=== PATIENT | male | born 1975 | race Caucasian/White ===

== ENCOUNTER 2018-01-24 04:00 | Inpatient (IN) | payer MEDICARE, MEDICAID ==
[2018-01-24] MEDS: IPRATROPIUM (NEB) 0.5 MG/2.5 ML AMP INH (04:24)
[2018-01-24] MEDS: LEVALBUTEROL (NEB) 1.25 MG/0.5 ML AMP INH (04:24)
[2018-01-24] MEDS: SOD CHLORIDE 0.9% 1,000 ML IV ×3 (04:56→16:48)
[2018-01-24 04:59] LABS: ADD MAN DIFF? NO
[2018-01-24 05:01] LABS: ABNORMAL IP MESSAGE 1; BASOPHIL # 0.1 10^3/ul (0.0-0.1); BASOPHILS % 1.2 % (0.0-2.0); EOSINOPHILS # 0.4 10^3/ul (0.0-0.5); EOSINOPHILS % 5.1 % (0.0-7.0); HEMATOCRIT 41.1 % (42.0-52.0); LYMPHOCYTES # 5.5 10^3/ul (0.8-2.9); MEAN CORPUSCULAR HEMOGLOBIN 28.7 pg (29.0-33.0); MEAN CORPUSCULAR HGB CONC 34.1 g/dl (32.0-37.0); MEAN CORPUSCULAR VOLUME 84.4 fl (82.0-101.0); MEAN PLATELET VOLUME 9.1 fl (7.4-10.4); MONOCYTE # 0.3 10^3/ul (0.3-0.9); MONOCYTES % 4.5 % (0.0-11.0); NEUTROPHIL # 1.3 10^3/ul (1.6-7.5); NEUTROPHILS % 16.9 % (39.0-77.0); PLATELET COUNT 223 10^3/UL (140-415); POSITIVE DIFF @See below; RED BLOOD COUNT 4.87 10^6/ul (4.70-6.10)
[2018-01-24 05:01] LABS: WHITE BLOOD COUNT 7.6 10^3/ul (4.8-10.8)
[2018-01-24 05:28] LABS: INR 0.92; PROTIME 12.4 Sec (11.9-14.9)
[2018-01-24 05:29] LABS: ANION GAP 13 (8-16); BLOOD UREA NITROGEN 12 mg/dl (7-20); CALCIUM 9.9 mg/dl (8.4-10.2); CARBON DIOXIDE 27 mmol/L (21-31); CHLORIDE 103 mmol/L (97-110); CREATININE 0.62 mg/dl (0.61-1.24); GLUCOSE 160 mg/dl (70-220); PARTIAL THROMBOPLASTIN TIME 30.9 Sec (25.0-35.0); POTASSIUM 4.5 mmol/L (3.5-5.1); SODIUM 138 mmol/L (135-144)
[2018-01-24 05:40] LABS: TROPONIN-I < 0.010 ng/ml (0.000-0.120)
[2018-01-24 06:05] LABS: D-DIMER 437.27 ng/ml (<460)
[2018-01-24] MEDS: ASPIRIN 325 MG TAB PO (07:25)
[2018-01-24] MEDS ORDERED: SOD CHLORIDE 0.9% 1,000 ML IV (09:00)
[2018-01-24] MEDS ORDERED: NITROGLYCERIN (SL) 0.4 MG TAB SL (09:00)
[2018-01-24] MEDS: SOD CHLORIDE 0.9% 500 ML IV (09:37)
[2018-01-24] MEDS ORDERED: ACETAMINOPHEN 325 MG TAB PO (10:00)
[2018-01-24] MEDS ORDERED: ONDANSETRON 4 MG INJ IV (10:00)
[2018-01-24] MEDS ORDERED: NACL 0.9% 3 ML SYG IV (10:00)
[2018-01-24 10:17] LABS: ALANINE AMINOTRANSFERASE 31 IU/L (13-69); ALBUMIN 4.3 g/dl (3.3-4.9); ALKALINE PHOSPHATASE 73 IU/L (42-121); ASPARTATE AMINO TRANSFERASE 32 IU/L (15-46); BILIRUBIN,INDIRECT 0.5 mg/dl (0-1.1); BILIRUBIN,TOTAL 0.5 mg/dl (0.2-1.3); TOTAL PROTEIN 6.9 g/dl (6.1-8.1)
[2018-01-24 10:20] LABS: HEMOGLOBIN A1C 7.6 % (0-5.9)
[2018-01-24] MEDS: HYDROCODONE/APAP (5/325) TAB PO (10:30)
[2018-01-24 11:34] LABS: B-TYPE NATRIURETIC PEPTIDE 43 PG/ML (0-125)
[2018-01-24 11:40] LABS: FREE T4 (FREE THYROXINE) 1.01 ng/dl (0.64-1.79)
[2018-01-24 11:50] LABS: CREATINE KINASE 28 IU/L (23-200)
[2018-01-24] MEDS: INSULIN ASPART [NOVOLOG] 3 ML PEN SC ×4 (11:50→16:54)
[2018-01-24 12:03] LABS: CK INDEX 1.9; CK-MB 0.53 ng/ml (0.0-2.4); TROPONIN-I < 0.010 ng/ml (0.000-0.120)
[2018-01-24] MEDS ORDERED: ALBUTEROL 0.083% (NEB) 2.5 MG/3 ML AMP HHN (12:30)
[2018-01-24] MEDS ORDERED: GLUCOSE GEL 15 GRAM TUBE BUCCAL (12:30)
[2018-01-24] MEDS ORDERED: GLUCOSE GEL 15 GRAM TUBE PO ×2 (12:30)
[2018-01-24] MEDS ORDERED: DEXTROSE 50% 50 ML SYRINGE IV ×2 (12:30)
[2018-01-24] MEDS ORDERED: GLUCAGON 1 MG INJ IM (12:30)
[2018-01-24] MEDS: HYDROCODONE/APAP (10/325) TAB PO (13:50)
[2018-01-24] MEDS ORDERED: HYDROCODONE/APAP (10/325) TAB PO (14:00)
[2018-01-24] MEDS: NYSTATIN 30 GM POWDER BTL TOP (16:27)
[2018-01-24 16:32] LABS: CREATINE KINASE 30 IU/L (23-200)
[2018-01-24 16:45] LABS: CK INDEX 1.9; CK-MB 0.58 ng/ml (0.0-2.4); TROPONIN-I < 0.010 ng/ml (0.000-0.120)
[2018-01-24] MEDS: HYDROmorphONE 2 MG TAB PO ×2 (17:37→21:35)
[2018-01-24 19:39] LABS: AMPHETAMINE/METHAMPHETAMINE Negative (NEGATIVE); BARBITURATES Negative (NEGATIVE); BENZODIAZEPINES Negative (NEGATIVE); CANNABINOIDS Negative (NEGATIVE); COCAINE Negative (NEGATIVE)
[2018-01-24 19:42] LABS: OPIATES Positive (NEGATIVE)
[2018-01-24] MEDS: GABAPENTIN 300 MG CAP PO (20:50)
[2018-01-24] MEDS: DIVALPROEX (EC) 500 MG TAB PO (20:50)
[2018-01-24] MEDS: QUETIAPINE 100 MG TAB PO (20:50)
[2018-01-24] MEDS: GEMFIBROZIL 600 MG TAB PO (20:50)
[2018-01-24] MEDS: INSULIN GLARGINE [LANTus] (100 UNITS/ML) SYG SC (20:58)
[2018-01-25] MEDS: HYDROmorphONE 2 MG TAB PO ×4 (01:36→14:58)
[2018-01-25] MEDS: LEVOTHYROXINE 75 MCG TAB PO (06:04)
[2018-01-25 06:14] LABS: ADD MAN DIFF? NO
[2018-01-25 06:43] LABS: BASOPHIL # 0.1 10^3/ul (0.0-0.1); BASOPHILS % 1.1 % (0.0-2.0); EOSINOPHILS # 0.3 10^3/ul (0.0-0.5); HEMATOCRIT 37.8 % (42.0-52.0); HEMOGLOBIN 12.9 g/dl (14.0-18.0); LYMPHOCYTES # 3.9 10^3/ul (0.8-2.9); LYMPHOCYTES % 67.9 % (15.0-51.0); MEAN CORPUSCULAR HEMOGLOBIN 28.5 pg (29.0-33.0); MEAN CORPUSCULAR HGB CONC 34.1 g/dl (32.0-37.0); MEAN CORPUSCULAR VOLUME 83.6 fl (82.0-101.0); MEAN PLATELET VOLUME 9.7 fl (7.4-10.4); MONOCYTE # 0.3 10^3/ul (0.3-0.9); MONOCYTES % 5.4 % (0.0-11.0); NEUTROPHIL # 1.1 10^3/ul (1.6-7.5); NEUTROPHILS % 19.6 % (39.0-77.0); PLATELET COUNT 215 10^3/UL (140-415); RED BLOOD COUNT 4.52 10^6/ul (4.70-6.10)
[2018-01-25 06:43] LABS: WHITE BLOOD COUNT 5.7 10^3/ul (4.8-10.8)
[2018-01-25 06:47] LABS: PHOSPHORUS 4.8 mg/dl (2.5-4.9)
[2018-01-25 06:47] LABS: MAGNESIUM 1.6 mg/dl (1.7-2.5)
[2018-01-25 07:30] LABS: ALANINE AMINOTRANSFERASE 31 IU/L (13-69); ALBUMIN 4.1 g/dl (3.3-4.9); ALBUMIN/GLOBULIN RATIO 1.64; ALKALINE PHOSPHATASE 73 IU/L (42-121); ANION GAP 11 (8-16); ASPARTATE AMINO TRANSFERASE 36 IU/L (15-46); BILIRUBIN,INDIRECT 0.4 mg/dl (0-1.1); BILIRUBIN,TOTAL 0.4 mg/dl (0.2-1.3); BLOOD UREA NITROGEN 12 mg/dl (7-20); CALCIUM 9.4 mg/dl (8.4-10.2); CARBON DIOXIDE 25 mmol/L (21-31); CHLORIDE 107 mmol/L (97-110); GLUCOSE 142 mg/dl (70-220); POTASSIUM 4.2 mmol/L (3.5-5.1); SODIUM 139 mmol/L (135-144); TOTAL PROTEIN 6.6 g/dl (6.1-8.1)
[2018-01-25] MEDS: GABAPENTIN 300 MG CAP PO (08:15)
[2018-01-25] MEDS: GEMFIBROZIL 600 MG TAB PO (08:15)
[2018-01-25] MEDS: ASPIRIN 81 MG TAB PO (08:16)
[2018-01-25] MEDS: CITALOPRAM 20 MG TAB PO (08:16)
[2018-01-25] MEDS: ENOXAPARIN 40 MG/0.4 ML SYG SC (08:38)
[2018-01-25 10:39] LABS: CHOLESTEROL 213 mg/dl (100-200)
[2018-01-25 10:39] LABS: CHOL/HDL RATIO 6.2 RATIO; HDL CHOLESTEROL 34 mg/dl (27-67); LDL CHOLESTEROL,CALCULATED 147 mg/dl; TRIGLYCERIDES 160 mg/dl (0-149)
[2018-01-25] MEDS: MAGNESIUM SULFATE 2 GM/50 ML 50 ML IVPB (10:52)
[2018-01-25] MEDS ORDERED: DEXTROSE 50% 50 ML SYRINGE IV ×2 (11:00)
[2018-01-25] MEDS ORDERED: GLUCAGON 1 MG INJ IM (11:00)
[2018-01-25] MEDS ORDERED: GLUCOSE GEL 15 GRAM TUBE BUCCAL (11:00)
[2018-01-25] MEDS ORDERED: GLUCOSE GEL 15 GRAM TUBE PO ×2 (11:00)
[2018-01-25] MEDS: INSULIN ASPART [NOVOLOG] 3 ML PEN SC ×4 (11:50→17:01)
[2018-01-26] MEDS ORDERED: ACCU-CHEK XX (02:00)
== END 2018-01-25 20:00 | DRG 313 ==
LOC: TEL 07:52 → E/R 04:00 → TEL 05:39
DX: R07.9 Chest pain, unspecified (principal); L03.311 Cellulitis of abdominal wall; J45.909 Unspecified asthma, uncomplicated; I95.9 Hypotension, unspecified; E11.9 Type 2 diabetes mellitus without complications; E78.5 Hyperlipidemia, unspecified; J44.9 Chronic obstructive pulmonary disease, unspecified; E03.9 Hypothyroidism, unspecified; G89.29 Other chronic pain; E66.9 Obesity, unspecified; Z68.36 Body mass index [BMI] 36.0-36.9, adult; F29 Unspecified psychosis not due to a substance or known physiological condition; F31.9 Bipolar disorder, unspecified
CPT/HCPCS: 36415; 71045; 80048; 80053; 80061; 80076; 80307; 82550; 82553; 82962; 83036; 83735; 83880; 84100; 84439; 84443; 84484; 85025; 85378; 85610; 85730; 87081; 93005; 93306; 94644; 99285-25; G0378

== ENCOUNTER 2018-02-06 22:08 | Emergency (ER) | payer MEDICARE, MEDICAID ==
[2018-02-06] MEDS: SOD CHLORIDE 0.9% 1,000 ML IV (22:59)
[2018-02-06] MEDS: KETOROLAC 30 MG INJ IV (22:59)
[2018-02-06 23:09] LABS: ADD MAN DIFF? NO
[2018-02-06 23:10] LABS: BASOPHIL # 0.1 10^3/ul (0.0-0.1); BASOPHILS % 1.4 % (0.0-2.0); EOSINOPHILS # 0.2 10^3/ul (0.0-0.5); EOSINOPHILS % 3.4 % (0.0-7.0); HEMATOCRIT 36.5 % (42.0-52.0); HEMOGLOBIN 12.7 g/dl (14.0-18.0); IMMATURE GRANS #M 0.01 10^3/ul; IMMATURE GRANS % (M) 0.2 %; LYMPHOCYTES # 3.2 10^3/ul (0.8-2.9); MEAN CORPUSCULAR HEMOGLOBIN 28.7 pg (29.0-33.0); MEAN CORPUSCULAR HGB CONC 34.8 g/dl (32.0-37.0); MEAN CORPUSCULAR VOLUME 82.4 fl (82.0-101.0); MEAN PLATELET VOLUME 10.1 fl (7.4-10.4); MONOCYTE # 0.5 10^3/ul (0.3-0.9); MONOCYTES % 9.1 % (0.0-11.0); NEUTROPHIL # 1.1 10^3/ul (1.6-7.5); NEUTROPHILS % 21.9 % (39.0-77.0); PLATELET COUNT 197 10^3/UL (140-415); RED BLOOD COUNT 4.43 10^6/ul (4.70-6.10); RED CELL DISTRIBUTION WIDTH 12.3 % (11.5-14.5)
[2018-02-06 23:14] LABS: INR 0.93; PROTIME 12.6 Sec (11.9-14.9)
[2018-02-06 23:15] LABS: PARTIAL THROMBOPLASTIN TIME 30.9 Sec (25.0-35.0)
[2018-02-06 23:16] LABS: ANION GAP 14 (8-16); BLOOD UREA NITROGEN 6 mg/dl (7-20); CALCIUM 9.6 mg/dl (8.4-10.2); CARBON DIOXIDE 23 mmol/L (21-31); CHLORIDE 106 mmol/L (97-110); CREATININE 0.55 mg/dl (0.61-1.24); GLUCOSE 151 mg/dl (70-220); POTASSIUM 4.1 mmol/L (3.5-5.1); SODIUM 139 mmol/L (135-144)
[2018-02-06 23:27] LABS: TROPONIN-I < 0.010 ng/ml (0.000-0.120)
[2018-02-06 23:50] LABS: VALPROATE 11 ug/ml (50-100)
[2018-02-07 01:28] LABS: TROPONIN-I < 0.010 ng/ml (0.000-0.120)
[2018-02-07] MEDS: OXYCODONE/ACETAMINOPHEN (5/325) TAB PO (02:47)
== END 2018-02-07 04:29 | disposition home or self-care (01) ==
LOC: E/R 02-07 04:29
DX: R07.9 Chest pain, unspecified (principal); D64.9 Anemia, unspecified; J44.9 Chronic obstructive pulmonary disease, unspecified; I10 Essential (primary) hypertension; F17.210 Nicotine dependence, cigarettes, uncomplicated; E03.9 Hypothyroidism, unspecified; E11.9 Type 2 diabetes mellitus without complications; Z79.84 Long term (current) use of oral hypoglycemic drugs
CPT/HCPCS: 36415; 71045; 80048; 80164; 84484; 85025; 85378; 85610; 85730; 93005; 96374; 99285-25

== ENCOUNTER 2018-02-20 23:08 | Emergency (ER) | payer MEDICARE, MEDICAID ==
[2018-02-20 23:28] LABS: ADD MAN DIFF? NO
[2018-02-20 23:33] LABS: WHITE BLOOD COUNT 4.4 10^3/ul (4.8-10.8)
[2018-02-20 23:33] LABS: BASOPHIL # 0.1 10^3/ul (0.0-0.1); BASOPHILS % 1.4 % (0.0-2.0); EOSINOPHILS # 0.2 10^3/ul (0.0-0.5); EOSINOPHILS % 3.6 % (0.0-7.0); HEMATOCRIT 36.7 % (42.0-52.0); HEMOGLOBIN 12.5 g/dl (14.0-18.0); LYMPHOCYTES # 2.8 10^3/ul (0.8-2.9); LYMPHOCYTES % 62.3 % (15.0-51.0); MEAN CORPUSCULAR HEMOGLOBIN 28.3 pg (29.0-33.0); MEAN CORPUSCULAR HGB CONC 34.1 g/dl (32.0-37.0); MEAN PLATELET VOLUME 9.5 fl (7.4-10.4); MONOCYTE # 0.4 10^3/ul (0.3-0.9); MONOCYTES % 9.3 % (0.0-11.0); NEUTROPHILS % 22.9 % (39.0-77.0); PLATELET COUNT 204 10^3/UL (140-415); RED BLOOD COUNT 4.42 10^6/ul (4.70-6.10); RED CELL DISTRIBUTION WIDTH 12.7 % (11.5-14.5)
[2018-02-20] MEDS: ASPIRIN 81 MG TAB PO (23:44)
[2018-02-20 23:50] LABS: ANION GAP 13 (8-16); BLOOD UREA NITROGEN 10 mg/dl (7-20); CALCIUM 9.5 mg/dl (8.4-10.2); CARBON DIOXIDE 24 mmol/L (21-31); CHLORIDE 102 mmol/L (97-110); CREATININE 0.66 mg/dl (0.61-1.24); GLUCOSE 151 mg/dl (70-220); POTASSIUM 4.3 mmol/L (3.5-5.1); SODIUM 135 mmol/L (135-144)
[2018-02-20 23:51] LABS: INR 0.94; PROTIME 12.7 Sec (11.9-14.9)
[2018-02-21 00:02] LABS: B-TYPE NATRIURETIC PEPTIDE 44 PG/ML (0-125); TROPONIN-I < 0.012 ng/ml (0.000-0.120)
[2018-02-21] MEDS: IOHEXOL 100 ML (01:06)
[2018-02-21] MEDS: SOD CHLORIDE 0.9% 100 ML (01:06)
[2018-02-21] MEDS: HYDROmorphONE 0.5 MG/0.5 ML SYG IV (03:00)
== END 2018-02-21 04:49 | disposition home or self-care (01) ==
LOC: E/R 23:08
DX: D64.9 Anemia, unspecified (principal); R07.89 Other chest pain; J44.9 Chronic obstructive pulmonary disease, unspecified; I10 Essential (primary) hypertension; E11.9 Type 2 diabetes mellitus without complications; E66.01 Morbid (severe) obesity due to excess calories; Z79.84 Long term (current) use of oral hypoglycemic drugs; Z68.38 Body mass index [BMI] 38.0-38.9, adult
CPT/HCPCS: 36415; 71045; 71275; 80048; 83880; 84484; 85025; 85610; 93005; 96374; 99285-25

== ENCOUNTER 2018-08-05 10:53 | Day surgery (SDC) | payer OTHER ==
[2018-08-05] MEDS ORDERED: DIAZEPAM 5 MG TAB PO (12:00)
[2018-08-05] MEDS ORDERED: DIPHENHYDRAMINE 50 MG CAP PO (12:00)
[2018-08-05] MEDS ORDERED: IODIXANOL LOCM 100 ML BTL (12:10)
[2018-08-05] MEDS ORDERED: LIDOCAINE 1% (MDV) 20 ML INJ (12:10)
[2018-08-05] MEDS ORDERED: HEPARIN 1000 UNITS/ML 10 ML INJ (12:10)
[2018-08-05] MEDS ORDERED: NITROGLYCERIN (IC) 100 MCG/ML INJ (12:11)
[2018-08-05] MEDS ORDERED: VERAPAMIL 5 MG INJ (12:11)
[2018-08-05] MEDS ORDERED: morphine 2 MG INJ IV (13:30)
[2018-08-05] MEDS ORDERED: ONDANSETRON 4 MG INJ IV (13:30)
[2018-08-05] MEDS ORDERED: AL HYDROX/MG HYDROX/SIMETH 30 ML CUP PO (13:30)
[2018-08-05] MEDS: ACETAMINOPHEN 325 MG TAB PO (15:12)
== END 2018-08-05 20:28 | disposition short-term general hospital (02) ==
LOC: CCL 10:53 → SDS 10:53 → CCL 20:28
DX: I25.10 Atherosclerotic heart disease of native coronary artery without angina pectoris (principal); I10 Essential (primary) hypertension; E11.9 Type 2 diabetes mellitus without complications
CPT/HCPCS: 82962; 93458

== ENCOUNTER 2018-10-26 00:19 | Emergency (ER) | payer MEDICARE, MEDICAID ==
[2018-10-26 00:56] LABS: ADD MAN DIFF? NO
[2018-10-26 01:00] LABS: WHITE BLOOD COUNT 4.2 10^3/ul (4.8-10.8)
[2018-10-26 01:00] LABS: BASOPHIL # 0.1 10^3/ul (0.0-0.1); BASOPHILS % 1.2 % (0.0-2.0); EOSINOPHILS % 0.7 % (0.0-7.0); HEMATOCRIT 36.7 % (42.0-52.0); HEMOGLOBIN 12.6 g/dl (14.0-18.0); LYMPHOCYTES # 1.3 10^3/ul (0.8-2.9); LYMPHOCYTES % 31.7 % (15.0-51.0); MEAN CORPUSCULAR HEMOGLOBIN 27.3 pg (29.0-33.0); MEAN CORPUSCULAR HGB CONC 34.3 g/dl (32.0-37.0); MEAN CORPUSCULAR VOLUME 79.6 fl (82.0-101.0); MEAN PLATELET VOLUME 9.8 fl (7.4-10.4); MONOCYTE # 0.4 10^3/ul (0.3-0.9); MONOCYTES % 8.3 % (0.0-11.0); NEUTROPHIL # 2.5 10^3/ul (1.6-7.5); NEUTROPHILS % 57.9 % (39.0-77.0); PLATELET COUNT 188 10^3/UL (140-415); RED BLOOD COUNT 4.61 10^6/ul (4.70-6.10); RED CELL DISTRIBUTION WIDTH 12.7 % (11.5-14.5)
[2018-10-26 01:15] LABS: ALANINE AMINOTRANSFERASE 30 IU/L (13-69); ALBUMIN 4.2 g/dl (3.3-4.9); ALBUMIN/GLOBULIN RATIO 1.82; ALKALINE PHOSPHATASE 130 IU/L (42-121); ANION GAP 11 (5-13); ASPARTATE AMINO TRANSFERASE 49 IU/L (15-46); BILIRUBIN,INDIRECT 0.4 mg/dl (0-1.1); BILIRUBIN,TOTAL 0.4 mg/dl (0.2-1.3); BLOOD UREA NITROGEN 11 mg/dl (7-20); CALCIUM 9.7 mg/dl (8.4-10.2); CARBON DIOXIDE 23 mmol/L (21-31); CHLORIDE 101 mmol/L (97-110); Estimated GFR > 60 mL/min (>60); POTASSIUM 3.9 mmol/L (3.5-5.1); SODIUM 135 mmol/L (135-144); TOTAL PROTEIN 6.5 g/dl (6.1-8.1)
[2018-10-26 01:17] LABS: GLUCOSE 415 mg/dl (70-220)
[2018-10-26 01:27] LABS: TROPONIN-I < 0.012 ng/ml (0.000-0.120)
[2018-10-26] MEDS: ACETAMINOPHEN 325 MG TAB PO (01:37)
[2018-10-26] MEDS: INSULIN REGULAR, HUMAN 100 UNIT/1 ML 3ML VIAL SC (01:37)
== END 2018-10-26 05:03 | disposition home or self-care (01) ==
LOC: E/R 00:19
DX: R07.9 Chest pain, unspecified (principal); I10 Essential (primary) hypertension; J45.909 Unspecified asthma, uncomplicated; E11.9 Type 2 diabetes mellitus without complications; Z79.84 Long term (current) use of oral hypoglycemic drugs
CPT/HCPCS: 71045; 80053; 82962; 84484; 85025; 93005; 96372; 99285-25

== ENCOUNTER 2019-01-27 08:19 | Inpatient (IN) | payer MEDICARE, MEDICAID ==
[2019-01-27 09:46] LABS: ADD MAN DIFF? NO
[2019-01-27 09:51] LABS: BASOPHIL # 0.1 10^3/ul (0.0-0.1); BASOPHILS % 1.3 % (0.0-2.0); EOSINOPHILS # 0.2 10^3/ul (0.0-0.5); EOSINOPHILS % 3.9 % (0.0-7.0); HEMATOCRIT 40.4 % (42.0-52.0); HEMOGLOBIN 13.8 g/dl (14.0-18.0); LYMPHOCYTES % 43.9 % (15.0-51.0); MEAN CORPUSCULAR HGB CONC 34.2 g/dl (32.0-37.0); MEAN CORPUSCULAR VOLUME 78.9 fl (82.0-101.0); MEAN PLATELET VOLUME 9.9 fl (7.4-10.4); MONOCYTE # 0.3 10^3/ul (0.3-0.9); MONOCYTES % 6.6 % (0.0-11.0); NEUTROPHILS % 44.1 % (39.0-77.0); PLATELET COUNT 180 10^3/UL (140-415); RED BLOOD COUNT 5.12 10^6/ul (4.70-6.10); RED CELL DISTRIBUTION WIDTH 13.6 % (11.5-14.5)
[2019-01-27 09:51] LABS: WHITE BLOOD COUNT 4.6 10^3/ul (4.8-10.8)
[2019-01-27 09:52] LABS: ADD UMIC YES; UR ASCORBIC ACID NEGATIVE (NEGATIVE); UR BILIRUBIN (Dip) NEGATIVE (NEGATIVE); UR BLOOD (Dip) NEGATIVE (NEGATIVE); UR CLARITY CLEAR (CLEAR); UR COLOR STRAW (YELLOW); UR GLUCOSE (Dip) 3+ mg/dL (NEGATIVE); UR KETONES (Dip) TRACE mg/dL (NEGATIVE); UR LEUKOCYTE ESTERASE (Dip) 1+ Leu/ul (NEGATIVE); UR NITRITE (Dip) NEGATIVE (NEGATIVE); UR RBC 2 /HPF (0-5); UR SPECIFIC GRAVITY (Dip) 1.028 (1.003-1.030); UR TOTAL PROTEIN (Dip) NEGATIVE (NEGATIVE); UR UROBILINOGEN (Dip) NEGATIVE (NEGATIVE); UR WBC 12 /HPF (0-5)
[2019-01-27] MEDS: ONDANSETRON 4 MG INJ IV (10:02)
[2019-01-27] MEDS: morphine 4 MG/ML VIAL IV (10:02)
[2019-01-27] MEDS: CEFTRIAXONE 1 GM/50 ML (PMX) 50 ML IVPB (10:15)
[2019-01-27 10:16] LABS: ALANINE AMINOTRANSFERASE 36 IU/L (13-69); ALBUMIN 4.2 g/dl (3.3-4.9); ALBUMIN/GLOBULIN RATIO 1.75; ALKALINE PHOSPHATASE 131 IU/L (42-121); ANION GAP 11 (5-13); ASPARTATE AMINO TRANSFERASE 46 IU/L (15-46); BILIRUBIN,INDIRECT 0.5 mg/dl (0-1.1); BILIRUBIN,TOTAL 0.5 mg/dl (0.2-1.3); BLOOD UREA NITROGEN 6 mg/dl (7-20); CALCIUM 9.2 mg/dl (8.4-10.2); CARBON DIOXIDE 21 mmol/L (21-31); CHLORIDE 104 mmol/L (97-110); CREATININE 0.63 mg/dl (0.61-1.24); Estimated GFR > 60 mL/min (>60); LIPASE 253 U/L (23-300); POTASSIUM 4.1 mmol/L (3.5-5.1); SODIUM 136 mmol/L (135-144); TOTAL PROTEIN 6.6 g/dl (6.1-8.1)
[2019-01-27 10:25] LABS: GLUCOSE 449 mg/dl (70-220)
[2019-01-27 10:28] LABS: TROPONIN-I < 0.012 ng/ml (0.000-0.120)
[2019-01-27] MEDS ORDERED: DEXTROSE 50% 50 ML SYRINGE IV ×3 (11:30→18:00)
[2019-01-27] MEDS: INSULIN REGULAR, HUMAN 100 UNIT/1 ML 3ML VIAL IVP (11:50)
[2019-01-27] MEDS: SOD CHLORIDE 0.9% 1,000 ML IV (11:51)
[2019-01-27] MEDS ORDERED: ACETAMINOPHEN 325 MG TAB PO (15:00)
[2019-01-27] MEDS ORDERED: ONDANSETRON 4 MG INJ IV ×2 (15:00→17:30)
[2019-01-27] MEDS ORDERED: hydrOXYzine HCL 25 MG TAB PO (17:30)
[2019-01-27] MEDS ORDERED: HYDROmorphONE 2 MG TAB PO (17:30)
[2019-01-27] MEDS ORDERED: NITROGLYCERIN (SL) 0.4 MG TAB SL (17:30)
[2019-01-27] MEDS ORDERED: DOCUSATE SODIUM 100 MG CAP PO (17:30)
[2019-01-27] MEDS ORDERED: NACL 0.9% 3 ML SYG IV (17:30)
[2019-01-27] MEDS ORDERED: hydrALAzine 20 MG INJ IV (17:30)
[2019-01-27] MEDS ORDERED: MAGNESIUM HYDROXIDE 30ML CUP PO (17:30)
[2019-01-27] MEDS: ACETAMINOPHEN 325 MG TAB PO (17:48)
[2019-01-27] MEDS: SOD CHLORIDE 0.45% 1,000 ML IV (17:48)
[2019-01-27] MEDS ORDERED: GLUCOSE GEL 15 GRAM TUBE BUCCAL (18:00)
[2019-01-27] MEDS ORDERED: GLUCAGON 1 MG INJ IM (18:00)
[2019-01-27] MEDS ORDERED: GLUCOSE GEL 15 GRAM TUBE PO ×2 (18:00)
[2019-01-27 18:03] LABS: FREE T4 (FREE THYROXINE) 1.46 ng/dl (0.64-1.79)
[2019-01-27] MEDS: HYDROmorphONE 2 MG TAB PO (18:19)
[2019-01-27] MEDS: LORAZEPAM 2 MG INJ IV (19:44)
[2019-01-27 20:26] LABS: INR 0.99; PROTIME 13.2 Sec (11.9-14.9)
[2019-01-27 20:55] LABS: PARTIAL THROMBOPLASTIN TIME 28.6 Sec (23.0-35.0)
[2019-01-27] MEDS: INSULIN ASPART [NOVOLOG] 3 ML PEN SC (21:00)
[2019-01-27] MEDS ORDERED: INSULIN GLARGINE [LANtus] 3 ML PEN SC (21:00)
[2019-01-27] MEDS ORDERED: NON-FORMULARY/PATIENT OWN MED (Omega-3 Acid Ethyl Esters (Lovaza) 2 GM) PO (21:00)
[2019-01-27] MEDS: GABAPENTIN 300 MG CAP PO (23:01)
[2019-01-27] MEDS: oxyCODONE (CR) 20 MG TAB [oxyCONTIN] PO (23:02)
[2019-01-27] MEDS: FISH OIL 1,000 MG CAP PO (23:03)
[2019-01-27] MEDS: ATORVASTATIN 40 MG TAB PO (23:03)
[2019-01-27] MEDS: METOPROLOL 25 MG TAB PO (23:04)
[2019-01-27] MEDS: HEPARIN 5,000 UNIT/1 ML VIAL SC (23:08)
[2019-01-28] MEDS ORDERED: QUETIAPINE 25 MG TAB (01:41)
[2019-01-28] MEDS: DIVALPROEX (ER) 500 MG TAB PO ×4 (01:49→22:15)
[2019-01-28] MEDS: QUETIAPINE 100 MG TAB PO ×2 (01:57→22:15)
[2019-01-28] MEDS: LORAZEPAM 2 MG INJ IV ×3 (02:00→18:16)
[2019-01-28] MEDS: ACCU-CHEK XX (02:00)
[2019-01-28] MEDS: morphine 4 MG/ML VIAL IV ×3 (02:14→11:28)
[2019-01-28] MEDS: INSULIN GLARGINE [LANTus] (100 UNITS/ML) SYG SC ×3 (02:33→21:00)
[2019-01-28] MEDS: INSULIN ASPART [NOVOLOG] 3 ML PEN SC ×5 (02:38→21:00)
[2019-01-28] MEDS: ALBUTEROL/IPRATROPIUM (NEB) 3 ML AMP HHN (02:50)
[2019-01-28 05:57] LABS: ADD MAN DIFF? NO
[2019-01-28 06:01] LABS: BASOPHIL # 0.1 10^3/ul (0.0-0.1); BASOPHILS % 1.4 % (0.0-2.0); EOSINOPHILS # 0.3 10^3/ul (0.0-0.5); EOSINOPHILS % 5.7 % (0.0-7.0); LYMPHOCYTES # 2.8 10^3/ul (0.8-2.9); LYMPHOCYTES % 55.1 % (15.0-51.0); MEAN CORPUSCULAR HEMOGLOBIN 26.9 pg (29.0-33.0); MEAN CORPUSCULAR HGB CONC 33.3 g/dl (32.0-37.0); MEAN CORPUSCULAR VOLUME 80.7 fl (82.0-101.0); MEAN PLATELET VOLUME 9.7 fl (7.4-10.4); MONOCYTE # 0.4 10^3/ul (0.3-0.9); NEUTROPHIL # 1.6 10^3/ul (1.6-7.5); NEUTROPHILS % 30.6 % (39.0-77.0); PLATELET COUNT 166 10^3/UL (140-415); RED BLOOD COUNT 4.83 10^6/ul (4.70-6.10); RED CELL DISTRIBUTION WIDTH 13.9 % (11.5-14.5)
[2019-01-28 06:01] LABS: WHITE BLOOD COUNT 5.1 10^3/ul (4.8-10.8)
[2019-01-28] MEDS: SOD CHLORIDE 0.45% 1,000 ML IV ×2 (06:22→08:54)
[2019-01-28] MEDS: LEVOTHYROXINE 75 MCG TAB PO (06:41)
[2019-01-28 06:44] LABS: ANION GAP 9 (5-13); BLOOD UREA NITROGEN 6 mg/dl (7-20); CALCIUM 8.5 mg/dl (8.4-10.2); CARBON DIOXIDE 22 mmol/L (21-31); CHLORIDE 109 mmol/L (97-110); CREATININE 0.56 mg/dl (0.61-1.24); Estimated GFR > 60 mL/min (>60); GLUCOSE 153 mg/dl (70-220); MAGNESIUM 1.9 mg/dl (1.7-2.5); PHOSPHORUS 3.8 mg/dl (2.5-4.9); POTASSIUM 3.6 mmol/L (3.5-5.1); SODIUM 140 mmol/L (135-144)
[2019-01-28 06:48] LABS: HDL CHOLESTEROL 32 mg/dl (27-67); LDL CHOLESTEROL,CALCULATED 91 mg/dl; TRIGLYCERIDES 508 mg/dl (0-149)
[2019-01-28 06:48] LABS: CHOLESTEROL 225 mg/dl (100-200)
[2019-01-28 07:54] LABS: HEMOGLOBIN A1C 9.7 % (0-5.9)
[2019-01-28] MEDS: FISH OIL 1,000 MG CAP PO ×2 (08:57→22:16)
[2019-01-28] MEDS: oxyCODONE (CR) 20 MG TAB [oxyCONTIN] PO ×2 (08:57→22:16)
[2019-01-28] MEDS: GABAPENTIN 300 MG CAP PO ×3 (08:57→22:15)
[2019-01-28] MEDS: METOPROLOL 25 MG TAB PO ×2 (08:58→22:16)
[2019-01-28] MEDS ORDERED: CITALOPRAM 20 MG TAB PO (09:00)
[2019-01-28] MEDS: FLUOXETINE 20 MG CAP PO (09:00)
[2019-01-28] MEDS: HEPARIN 5,000 UNIT/1 ML VIAL SC ×2 (09:00→22:34)
[2019-01-28] MEDS: BARIUM SULF 2% 450 ML BTL (BERRY SMOOTHIE) PO (11:29)
[2019-01-28] MEDS: SOD CHLORIDE 0.9% 100 ML (14:39)
[2019-01-28] MEDS: IOHEXOL 300MG/ML 150 ML BTL (14:40)
[2019-01-28] MEDS: morphine 2 MG INJ IV ×2 (17:18→22:12)
[2019-01-28] MEDS: ATORVASTATIN 40 MG TAB PO (22:15)
[2019-01-29] MEDS: ACCU-CHEK XX (02:00)
[2019-01-29] MEDS: morphine 2 MG INJ IV ×3 (05:30→14:28)
[2019-01-29] MEDS: SOD CHLORIDE 0.45% 1,000 ML IV (05:34)
[2019-01-29 05:36] LABS: ADD MAN DIFF? NO
[2019-01-29] MEDS: LORAZEPAM 2 MG INJ IV ×2 (05:40→11:44)
[2019-01-29 05:43] LABS: BASOPHIL # 0.1 10^3/ul (0.0-0.1); BASOPHILS % 1.4 % (0.0-2.0); EOSINOPHILS # 0.1 10^3/ul (0.0-0.5); EOSINOPHILS % 3.2 % (0.0-7.0); HEMATOCRIT 39.8 % (42.0-52.0); HEMOGLOBIN 13.3 g/dl (14.0-18.0); LYMPHOCYTES % 44.9 % (15.0-51.0); MEAN CORPUSCULAR HGB CONC 33.4 g/dl (32.0-37.0); MEAN CORPUSCULAR VOLUME 80.7 fl (82.0-101.0); MEAN PLATELET VOLUME 9.8 fl (7.4-10.4); MONOCYTE # 0.3 10^3/ul (0.3-0.9); MONOCYTES % 6.4 % (0.0-11.0); NEUTROPHIL # 1.9 10^3/ul (1.6-7.5); NEUTROPHILS % 43.9 % (39.0-77.0); PLATELET COUNT 184 10^3/UL (140-415); RED BLOOD COUNT 4.93 10^6/ul (4.70-6.10); RED CELL DISTRIBUTION WIDTH 13.9 % (11.5-14.5)
[2019-01-29 05:43] LABS: WHITE BLOOD COUNT 4.4 10^3/ul (4.8-10.8)
[2019-01-29 06:04] LABS: ANION GAP 8 (5-13); BLOOD UREA NITROGEN 6 mg/dl (7-20); CALCIUM 8.9 mg/dl (8.4-10.2); CARBON DIOXIDE 24 mmol/L (21-31); CHLORIDE 111 mmol/L (97-110); CREATININE 0.52 mg/dl (0.61-1.24); Estimated GFR > 60 mL/min (>60); GLUCOSE 101 mg/dl (70-220); POTASSIUM 3.8 mmol/L (3.5-5.1); SODIUM 143 mmol/L (135-144)
[2019-01-29 06:13] LABS: ALANINE AMINOTRANSFERASE 47 IU/L (13-69); ALBUMIN 3.6 g/dl (3.3-4.9); ALKALINE PHOSPHATASE 88 IU/L (42-121); ASPARTATE AMINO TRANSFERASE 55 IU/L (15-46); BILIRUBIN,INDIRECT 0.6 mg/dl (0-1.1); BILIRUBIN,TOTAL 0.6 mg/dl (0.2-1.3); TOTAL PROTEIN 6.2 g/dl (6.1-8.1)
[2019-01-29] MEDS: LEVOTHYROXINE 75 MCG TAB PO (06:26)
[2019-01-29] MEDS: INSULIN ASPART [NOVOLOG] 3 ML PEN SC ×3 (07:30→17:32)
[2019-01-29] MEDS: HEPARIN 5,000 UNIT/1 ML VIAL SC (07:58)
[2019-01-29] MEDS: INSULIN GLARGINE [LANTus] (100 UNITS/ML) SYG SC (07:58)
[2019-01-29] MEDS: GABAPENTIN 300 MG CAP PO ×2 (07:58→11:54)
[2019-01-29] MEDS: FISH OIL 1,000 MG CAP PO (07:59)
[2019-01-29] MEDS: FLUOXETINE 20 MG CAP PO (07:59)
[2019-01-29] MEDS: DIVALPROEX (ER) 500 MG TAB PO ×2 (07:59→11:54)
[2019-01-29] MEDS: oxyCODONE (CR) 20 MG TAB [oxyCONTIN] PO (07:59)
[2019-01-29] MEDS: METOPROLOL 25 MG TAB PO (08:47)
[2019-01-29] MEDS: ALBUTEROL/IPRATROPIUM (NEB) 3 ML AMP HHN (14:21)
[2019-01-29] MEDS: LORAZEPAM 0.5 MG TAB PO (18:54)
[2019-01-29] MEDS: HYOSCYAMINE 0.125 MG SUBL TAB PO (18:54)
[2019-01-29] MEDS ORDERED: QUETIAPINE 100 MG TAB PO (21:00)
[2019-01-30] MEDS ORDERED: PANTOPRAZOLE (EC) 40 MG TAB PO (06:00)
== END 2019-01-29 20:36 | disposition home or self-care (01) | DRG 445 ==
LOC: E/R 08:19 → PP2 14:34
DX: K80.70 Calculus of gallbladder and bile duct without cholecystitis without obstruction (principal); Z68.43 Body mass index [BMI] 50.0-59.9, adult; E11.65 Type 2 diabetes mellitus with hyperglycemia; E66.01 Morbid (severe) obesity due to excess calories; K76.0 Fatty (change of) liver, not elsewhere classified; I10 Essential (primary) hypertension; F31.9 Bipolar disorder, unspecified; E78.5 Hyperlipidemia, unspecified; J45.909 Unspecified asthma, uncomplicated; F41.9 Anxiety disorder, unspecified; G89.4 Chronic pain syndrome; Z76.5 Malingerer [conscious simulation]; Z79.4 Long term (current) use of insulin; Z71.3 Dietary counseling and surveillance; Z98.84 Bariatric surgery status
CPT/HCPCS: 36415; 71045; 74177; 76705; 80048; 80053; 80061; 80076; 81001; 82962; 83036; 83690; 83735; 84100; 84439; 84443; 84484; 85025; 85610; 85730; 87081; 93005; 94640; 94664; 96365; 96366; 96375; 97162; 97167; 99285-25